=== PATIENT | male | born 1995 | race Caucasian/White ===

== ENCOUNTER 2025-08-08 08:07 | Emergency (ER) | payer BC, OTHER ==
[~2025-08-08] VITALS: Ht 198.1 cm; Wt 137.1 kg
[~2025-08-08 08:07] MED LIST: CARI-277
[2025-08-08] MEDS: SODIUM CHLORIDE 0.9% 1,000 ML IV ONE (08:30)
--- NOTE | 2025-08-08 08:37 | ED.PDOC ---
Musculoskeletal HPI Comments 30 year old male presents to the ED with a chief complaint of LT arm pain onset today (08/08/25) around 05:00. Patient states he woke up this morning experiencing LT arm pain with LT hand tingling sensation. Patient was driving to work when he began experiencing chest pressure, came to ED. Denies any PMHx as well as shortness of breath, dizziness, fever, chills, cough, congestion, headache, blurred vision, weakness, nausea, vomiting, fall, injury, trauma. No other symptoms or modifying factors present at this time. Chief Complaint: Upper Extremity Time Seen by MD: 08:25 Reviewed Notes: Medications, Allergies Allergies: Coded Allergies: NO KNOWN ALLERGIES (Unverified , 09/06/10) Home Meds Reported Medications Carisoprodol (Soma) 350 Mg Tab 09/06/10 Information Source: Patient Mode of Arrival: Ambulatory Location: Left Extremity Location: Arm, Hand Timing: Hours Prehospital treatment: None Severity: Moderate Able to Move Extremity: Yes Pain: Moderate Mechanism: Spontaneous Circumstances: Spontaneous Onset of Symptoms: Spontaneous Symptoms: Pain DVT Risk Factors: NONE Associated signs and symptoms: Arm pain Past Medical History PAST MEDICAL HISTORY: Denies Surgical History: Denies all surgeries Family History Family History: Reviewed,noncontributory to illness, No family hx of Cancer, No family hx of DM, No family hx of Heart marcia, No family hx of HTN, No family hx ofKidney marcia, No family hx of Liver marcia, No family hx of Lung marcia, No family hx of Stroke Social History Smoker: Cigarettes Alcohol: Heavy Drugs: Denies Drug Use Lives In: Home Constitutional: denies: chills, diaphoresis, fatigue, fever, malaise, sweats, weakness, others EENTM: denies: blurred vision, double vision, ear bleeding, ear discharge, ear drainage, ear pain, ear ringing, eye pain, eye redness, hearing loss, mouth pain , mouth swelling, nasal discharge, nose bleeding, nose congestion, nose pain, photophobia, tearing, throat pain, throat swelling, voice changes, others Respiratory: denies: cough, hemoptysis, orthopnea, SOB at rest, shortness of breath, SOB with excertion, stridor, wheezing, others Cardiovascular: reports: chest pain; denies: dizzy spells, diaphoresis, Dyspnea on exertion, edema, irregular heart beat, left arm pain, lightheadedness, palpitations, PND, syncope, others Gastrointestinal: denies: abdomen distended, abdominal pain, blood streaked bowels, constipated, diarrhea, dysphagia, difficulty swallowing, hematemesis, melena, nausea, poor appetite, poor fluid intake, rectal bleeding, rectal pain, vomiting, others Genitourinary: denies: burning, dysuria, flank pain, frequency, hematuria, incontinence, penile discharge, penile sore, pain, testicle pain, testicle swelling, urgency, others Neurological: reports: tingling (LT hand); denies: dizziness, fainting, headache, left sided numbness, left sided weakness, numbness, paresthesia, pre- existing deficit, right sided numbness, right sided weakness, seizure, speech problems, tremors, weakness, others Musculoskeletal: reports: others (LT arm pain); denies: back pain, gout, joint pain, joint swelling, muscle pain, muscle stiffness, neck pain Integumetry: denies: bruises, change in color, change in hair/nails, dryness, laceration, lesions, lumps, rash, wounds, others Allergic/Immunocompromised: denies: Difficulty Healing, Frequent Infections, Hives, Itching, others Hematologic/Lymphatic: denies: anemia, blood clots, easy bleeding, easy bruising, swollen glands, others Endocrine: denies: excessive hunger, excessive sweating, excessive thirst, excessive urination, flushing, intolerance to cold, intolerance to heat, unexplained weight gain, unexplained weight loss, others Psychiatric: denies: anxiety, bipolar disorder, depression, hopeless, panic disorder, schizophrenia, sleepless, suicidal, others All Other Systems: Reviewed and Negative Physical Exam General Appearance: Moderate Distress HEENT: Normal ENT Inspection, Pharynx Normal, TMs Normal Neck: Full Range of Motion, Non-Tender, Normal, Normal Inspection Respiratory: Chest Non-Tender, Lungs Clear, No Accessory Muscle Use, No R espiratory Distress, Normal Breath Sounds Cardiovascular: No Edema, No JVD, No Murmur, No Gallop, Normal Peripheral Pulses, Regular Rate/Rhythm Breast Exam: Deferred Gastrointestinal: No Organomegaly, Non Tender, No Pulsatile Mass, Normal Bowel Sounds, Soft Genitalia: Deferred Pelvic: Deferred Rectal: Deferred Extremities: No calf tenderness, Normal capillary refill, Normal inspection, Normal range of motion, Non-tender, No pedal edema Musculoskeletal : Apperance: Normal Neurologic: Alert, independent sales representative II-XII nml as Tested, No Motor Deficits, Normal Affect, Normal Mood, No Sensory Deficits Cerebellar Function: Normal Reflexes: Normal Skin: Dry, Normal Color, Warm Peripheral Pulses: 3+ Radial (R), 3+ Radial (L) Lymphatic: No Adenopathy Was a procedure done? Was a procedure done?: No Differential Diagnosis EXT Differential Diagnosis: Sprain, Strain X-Ray, Labs, Meds, VS Vital Signs Date Time Temp Pulse Resp B/P (MAP) Pulse Ox O2 Delivery O2 Flow Rate FiO2 08/08/25 10:20 87 16 153/97 (115) 08/08/25 09:00 154/92 08/08/25 08:17 80 08/08/25 08:09 98.4 89 15 151/97 99 98.4 Lab Test 08/08/25 09:27 08/08/25 08:33 Range/Units Troponin I High Sensitivity 17 18 </=54 ng/L D-Dimer, Quantitative < 0.19 0.0-0.49 mg/L FEU Patient alert. Came in because of chest discomfort on deep inspiration. Vitals stable. Answering questions. Denies taking any medication. He does drink every day. Blood pressure slightly elevated. Was given clonidine. EKG reviewed does not show any acute changes. Explained to the patient. Was told to follow up with his primary care physician. Was told to come back if there is any problem. Time of 1ST Reevaluation: 08:55 Reevaluation 1ST: Improved Patient Education/Counseling: Diagnosis, Treatment, Prognosis Family Education/Counseling: No Family Present Departure 1 Departure Time of Disposition: 08:45 Impression: Primary Impression: Hypertension Qualified Codes: I10 - Essential (primary) hypertension Disposition: 01 HOME / SELF CARE / HOMELESS Condition: Good Discharged With: Self Critical Care Note Critical Care Time?: No Stability Stability form required: No Heart Score Heart Score: Heart Score Response (Comments) Value History N/A 0 EKG N/A 0 Age N/A 0 Risk Factors N/A 0 Troponin N/A 0 Total 0 I personally scribed for ARCHIE STUBBS MD ([email or web address]) on 08/08/25 at 08:37. Electronically submitted by Stanislaw Del Valle ([email or web address]). ARCHIE STUBBS MD Aug 08, 2025 08:37
[2025-08-08 11:42] VITALS: BP 134/87; PULSE 77; RESP 17; TEMP 98.7; O2SAT 98
--- NOTE | 2025-08-09 07:23 | ECG ---
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
== END 2025-08-08 11:45 | disposition home or self-care (01) ==
LOC: ER 08:07
DX: I10 Essential (primary) hypertension (principal); F17.210 Nicotine dependence, cigarettes, uncomplicated
CPT/HCPCS: 36415; 84484; 85379; 93005